=== PATIENT | female | born 1970 | race Caucasian/White ===

== ENCOUNTER 2017-04-02 08:02 | Emergency (ER) | payer BC ==
[~2017-04-02] VITALS: Ht 160 cm; Wt 81.0 kg
[~2017-04-02 08:02] MED LIST: NAPROSYN500 MG PO; ROBAXIN500 MG PO
[2017-04-02] MEDS ORDERED: LORTAB 5-325 M1 EACH PO (09:43)
[2017-04-02 10:21] VITALS: BP 132/95
== END 2017-04-02 10:25 | disposition home or self-care (01) ==
LOC: EME 08:02
PROC: 2W3QX1Z Immobilization of Right Lower Leg using Splint (ICD-10-PCS; principal; 2017-04-02)
DX: S82.831A Other fracture of upper and lower end of right fibula, initial encounter for closed fracture (principal); X50.9XXA Other and unspecified overexertion or strenuous movements or postures, initial encounter; W19.XXXA Unspecified fall, initial encounter; Y93.89 Activity, other specified; Y92.009 Unspecified place in unspecified non-institutional (private) residence as the place of occurrence of the external cause
CPT/HCPCS: 73610; 99281; 99285